=== PATIENT | female | born 1965 | race Caucasian/White ===

== ENCOUNTER 2018-07-26 10:51 | Day surgery (SDC) | payer OTHER ==
[~2018-07-26] VITALS: Ht 162.6 cm; Wt 94.0 kg
[~2018-07-26 10:51] MED LIST: ACTIVELLA PO; ALL DAY ALLERGY10 M1 PO; BENADRYL25 MG PO; Imitrex100 MG PO; LEVSOD125 PO; SERT100 PO; VALACYCLOVIR500 MG PO
--- NOTE | 2018-07-26 12:46 | NUR ---
07/26/18 1246 Brooklynn Terrazas (Raine LIDOCAINE JELLY USED DURING PROCEDURE PER PT REQUEST & PHYSICIAN APPROVAL.
== END 2018-07-26 13:50 | disposition home or self-care (01) ==
LOC: ORSCSDS 10:51 → ORD 12:30 → ORSCSDS 13:00
PROVIDERS: Internal Medicine Gastroenterology
PROC: 0DBL8ZX Excision of Transverse Colon, Via Natural or Artificial Opening Endoscopic, Diagnostic (ICD-10-PCS; principal; 2018-07-26 12:30)
PROC: 0DBE8ZX Excision of Large Intestine, Via Natural or Artificial Opening Endoscopic, Diagnostic (ICD-10-PCS; principal; 2018-07-26 12:30)
DX: K62.5 Hemorrhage of anus and rectum (principal); R19.4 Change in bowel habit; D12.3 Benign neoplasm of transverse colon; K64.8 Other hemorrhoids; K57.30 Diverticulosis of large intestine without perforation or abscess without bleeding; F41.8 Other specified anxiety disorders; E03.9 Hypothyroidism, unspecified; D50.9 Iron deficiency anemia, unspecified; E55.9 Vitamin D deficiency, unspecified; Z79.899 Other long term (current) drug therapy
CPT/HCPCS: 88305; J2704; J7120

== ENCOUNTER → 2019-11-03 | Outpatient (CLI) | payer OTHER | LOC: LAB EV 12:32 → LAB SHORT 12:32 | DX: N39.0 Urinary tract infection, site not specified (principal) | CPT/HCPCS: 87077; 87086; 87186 ==

== ENCOUNTER → 2019-11-14 | Outpatient (CLI) | payer OTHER | END | disposition home or self-care (01) | LOC: LAB SHORT 13:15 → LAB 13:15 | DX: R30.9 Painful micturition, unspecified (principal) | CPT/HCPCS: 87086 ==

== ENCOUNTER → 2020-09-08 | Outpatient (CLI) | payer OTHER | END | disposition home or self-care (01) | LOC: LAB SHORT 17:58 | DX: N39.0 Urinary tract infection, site not specified (principal) | CPT/HCPCS: 87086 ==

== ENCOUNTER → 2021-12-11 | Outpatient (CLI) | payer OTHER | LOC: LAB 20:30 → LAB SHORT 20:30 | DX: E61.1 Iron deficiency (principal); R10.32 Left lower quadrant pain | CPT/HCPCS: 83993 ==

== ENCOUNTER 2022-03-30 12:00 | Day surgery (SDC) | payer OTHER ==
[~2022-03-30] VITALS: Ht 165.1 cm; Wt 99.6 kg
[2022-03-30] MEDS ORDERED: BUSP10 (13:14)
[2022-03-30] MEDS ORDERED: CYCL10 (13:14)
[2022-03-30] MEDS ORDERED: ONDA4ODT (13:14)
[2022-03-30] MEDS ORDERED: DULO60 (13:14)
[2022-03-30] MEDS ORDERED: TRAZ100 (13:14)
[2022-03-30] MEDS ORDERED: VERA240ER (13:15)
[2022-03-30] MEDS ORDERED: ERGO400 (13:15)
[2022-03-30] MEDS ORDERED: RIZATRIPTAN10 MG (13:15)
[2022-03-30] MEDS ORDERED: VITAMIN B125000 MC1 (13:15)
[2022-03-30] MEDS ORDERED: Vitamin B-1250 MC1 (13:15)
[2022-03-30] MEDS ORDERED: PROGEST (13:20)
[2022-03-30] MEDS ORDERED: ESTR (13:20)
[2022-03-30] MEDS ORDERED: TESTOST (13:20)
[2022-03-30] MEDS ORDERED: [UNRECOGNIZED DRUG - OTHER] (13:20)
[2022-03-30] MEDS ORDERED: PROGESTERONE (13:20)
[2022-03-30] MEDS ORDERED: TRIM100 (13:39)
== END 2022-03-30 15:49 | disposition home or self-care (01) ==
LOC: ORSCSDS 12:00
PROVIDERS: Internal Medicine Gastroenterology
PROC: 0DBN8ZX Excision of Sigmoid Colon, Via Natural or Artificial Opening Endoscopic, Diagnostic (ICD-10-PCS; principal; 2022-03-30 13:30)
PROC: 0DB98ZX Excision of Duodenum, Via Natural or Artificial Opening Endoscopic, Diagnostic (ICD-10-PCS; principal; 2022-03-30 13:30)
PROC: 0DB78ZX Excision of Stomach, Pylorus, Via Natural or Artificial Opening Endoscopic, Diagnostic (ICD-10-PCS; principal; 2022-03-30 13:30)
DX: R10.32 Left lower quadrant pain (principal); D12.5 Benign neoplasm of sigmoid colon; K90.0 Celiac disease; K57.30 Diverticulosis of large intestine without perforation or abscess without bleeding; B96.81 Helicobacter pylori [H. pylori] as the cause of diseases classified elsewhere; K29.70 Gastritis, unspecified, without bleeding; K21.9 Gastro-esophageal reflux disease without esophagitis; E03.9 Hypothyroidism, unspecified; Z79.899 Other long term (current) drug therapy; K64.8 Other hemorrhoids
CPT/HCPCS: 88305; 88342; J2704; J7120

== ENCOUNTER → 2022-06-27 | Outpatient (CLI) | payer OTHER ==
[~2022-06-27] MED LIST changes: +BUSP10; +CYCL10; +DULO60; +ERGO400; +ESTR; +ONDA4ODT; +PROGEST; +PROGESTERONE; +RIZATRIPTAN10 MG; +TESTOST; +TRAZ100; +TRIM100; +VERA240ER; +VITAMIN B125000 MC1; +Vitamin B-1250 MC1; +[UNRECOGNIZED DRUG - OTHER]
== END | disposition home or self-care (01) ==
LOC: LAB SHORT 11:39 → LAB 11:39
DX: A04.8 Other specified bacterial intestinal infections (principal); E61.1 Iron deficiency
CPT/HCPCS: 87338